=== PATIENT | male | born 1970 | race Caucasian/White ===

== ENCOUNTER 2023-04-04 11:19 | Outpatient (AMB) | payer BC, SELFPAY ==
--- NOTE | 2023-04-04 11:23 | A.OFFPC_ITS ---
Vital Signs 04/04/23 11:31 Height 5 ft 8 in Weight 310 lb BMI 47.1 BP 138/78 Blood Pressure Location Lt brachial Position Sitting Pulse 83 Pulse Source Pulse Oximeter Pulse Oximetry (%) 98 Oxygen Delivery Method Room Air Intake Visit Reasons: NURSES' ASSOCIATION COUNSELOR/Depression Intake Note: Pt is here today for a New patient visit PE. Allergies No Known Allergies Allergy (Verified 04/04/23 11:33) Medication List - Last Reconciled 04/04/[address] MD duloxetine (Cymbalta) 30 mg PO BID Tobacco use date assessed: 04/04/23 Dental Screening Dental Screen Date: 04/04/23 Did you have a dental visit in the last 12 months?: No Did you have a dental problem in the last 6 months where you did not have access to dental care?: No Was dental information given to patient?: Patient declined HPI NURSES' ASSOCIATION COUNSELOR/Depression HPI Details Pt presents for NURSES' ASSOCIATION COUNSELOR visit. PMH includes anxiety for 10 years controlled on Cymbalta. Pt declined PE, labs and colonoscopy. PFSH Surgical History Hx of cholecystectomy Hx of cervical spine surgery Family History Father No problems noted. Mother Mental health disorder Dementia Social History Household Members Other:: lives with partner, 2 children (daughter and son), works as otr truck driver Housing: Apartment Patient Tobacco Use Status: Former Tobacco user (10 years ago) Tobacco use type: Cigarette e-Cigarette/Vaping Use: Currently Using Current occupational status: employed Cognitive needs: No Hearing needs: No Vision needs: Yes Questionnaire PHQ-9 Over the last 2 weeks, how often have you been bothered by any of the following problems? 59287 - PHQ-9 Billing: Patient declined-do not bill Source: Developed by Drs. Stu Monroy, Trudy Cutler, Lacho Aguilar and colleagues, with an educational isidoro from [employer]. Thrive Questionnaire Date Thrive assessed: 04/04/23 I am a: Patient What is your living situation today?: I have a steady place to live Within the past 12 months, did the food you bought not last and you didn't have the money to get more?: Never true Within the past 12 months, did you worry whether your food would run out before you got money to buy more?: Never true Do you have trouble paying for medicines?: No Do you have trouble getting transportation to medical appointments?: No Do you have trouble paying your heating and electricity bill?: No Do you have trouble taking care of your child, family member or friend?: No Do you have trouble with day-to-day activities such as bathing, preparing meals, shopping, managing finances, etc.?: No Are you currently unemployed and looking for a job?: No Are you interested in more education?: No Please select the resources that you would like help with: None Currently or been in a relationship where the following occur: no concerns reported THRIVE Score: 0 AUDIT C Alcohol Use Questionnaire (AUDIT-C) 1. How often do you have a drink containing alcohol?: 2-3 times a week 2. How many drinks containing alcohol do you have on a typical day when you are drinking?: 1 or 2 3. How often do you have six or more drinks on one occasion?: Never Total Score: 3 LISANDRO-7 AMB Questionnaire LISANDRO-7 Date LISANDRO - 7 assessed: 04/04/23 Feeling nervous, anxious, or on edge: 0 = Not at all Not being able to stop or control worryin = Not at all Worrying too much about different things: 0 = Not at all Trouble relaxin = Not at all Being so restless that it is hard to sit still: 0 = Not at all Becoming easily annoyed or irritable: 0 = Not at all Feeling afraid as if something awful might happen: 0 = Not at all Total LISANDRO-7 score (0-4 normal; 5-9 mild; 10-14 moderate; 15-21 severe): 0 Source: Developed by Drs. Stu Monroy, Trudy Cutler, Lacho Aguilar and colleagues, with an educational isidoro from [employer]. Review of Systems Const All systems reviewed & are unremarkable except as noted in HPI and below Reports no additional complaints Eyes Reports no additional complaints ENT Reports no additional complaints Card Reports no additional complaints Resp Reports no additional complaints GI Reports no additional complaints Reports no additional complaints Musc Reports no additional complaints Physical exam (Primary Care) Vital Signs: Last Vital Signs Pulse 83 04/04/23 11:31 BP 138/78 04/04/23 11:31 Pulse Ox 98 04/04/23 11:31 Oxygen Delivery Method Room Air 04/04/23 11:31 BMI result Body Mass Index 47.1 Tobacco/Smoking Status: Tobacco use Status Tobacco use date assessed 04/04/23 04/04/23 11:41 Patient Tobacco Use Status Former Tobacco user (10 04/04/23 12:12 years ago) Tobacco use type Cigarette 04/04/23 12:12 e-Cigarette/Vaping Use Currently Using 04/04/23 12:12 Thrive Assessment: Date of Thrive Assessment Date Thrive assessed 04/04/23 04/04/23 11:41 Currently or been in a relationship where the following occur: no concerns reported Const General: no acute distress HENMT Head: Yes normal to inspection Ears: hearing grossly normal bilaterally General nose exam: Normal external nose present Face and sinus: Yes normal facial exam Mouth: Normal oral and palatal mucosa present Throat: Yes posterior oropharynx normal Eyes General: appearance normal, both eyes and all related structures Neck Neck: Yes no lymphadenopathy and Yes supple Resp Effort & Inspection: normal respiratory effort Auscultation: clear to auscultation bilaterally Cardio Rhythm: regular rhythm Heart sounds: S1 normal heart sound present and S2 normal heart sound present GI Inspection: Yes normal to inspection Palpation (GI): Soft to palpation Percussion: Yes normal to percussion Auscultation: normal bowel sounds Assessment and Plan Assessment & Plan (1) Anxiety: Code(s): F41.9 - Anxiety disorder, unspecified Plan: cont Cymbalta, psychotherapy recommended Orders: Referrals Counseling Referral F41.9 - Anxiety disorder, unspecified Medications: Refilled duloxetine (Cymbalta) 30 mg PO BID 60 caps 5RF F41.9 - Anxiety disorder, unspecified duloxetine (Cymbalta) 30 mg PO BID 60 caps 5RF F41.9 - Anxiety disorder, unspecified Coding Level of Care Code New Pt Level 3 (04054) Diagnoses Anxiety F41.9
[2023-04-04 11:31] VITALS: BP 138/78; PULSE 83; O2SAT 98; BMI 47.1
== END 2023-04-04 19:47 | disposition home or self-care (01) ==
PROVIDERS: PCP Internal Medicine; Visit Provider Internal Medicine
DX: F41.9 Anxiety disorder, unspecified (principal)
CPT/HCPCS: 99203

== ENCOUNTER 2023-05-15 11:39 | Outpatient (AMB) | payer BC, SELFPAY ==
[2023-05-15 11:51] VITALS: BP 138/84; PULSE 90; O2SAT 97; BMI 48.2
--- NOTE | 2023-05-15 11:51 | A.OFFPC_ITS ---
Vital Signs 05/15/23 11:51 Height 5 ft 8 in Weight 317 lb BMI 48.2 BP 138/84 Blood Pressure Location Rt brachial Position Sitting Pulse 90 Pulse Source Pulse Oximeter Pulse Oximetry (%) 97 Oxygen Delivery Method Room Air Intake Visit Reasons: flu like symptoms, cough, Intake Note: Pt is here today for a sick visit. Pt c/o cough, congestion loosing voice since Monday. Allergies No Known Allergies Allergy (Verified 05/15/23 11:55) Medication List - Last Reconciled 05/15/[address] MD benzonatate 200 mg PO BID PRN duloxetine (Cymbalta) 30 mg PO BID Tobacco use date assessed: 05/15/23 Dental Screening Dental Screen Date: 04/04/23 HPI flu like symptoms, cough, HPI Details Pt presents c/o nasal congestion, rhinorrhea, chills, dry cough for 2 days. Patient denies shortness or breath pleurisy fever sore throat PFSH Surgical History Hx of cholecystectomy Hx of cervical spine surgery Family History Father No problems noted. Mother Mental health disorder Dementia Social History Household Members Other:: lives with partner, 2 children (daughter and son), works as tank truck operator Housing: Apartment Patient Tobacco Use Status: Former Tobacco user (10 years ago) Tobacco use type: Cigarette e-Cigarette/Vaping Use: Currently Using service: No Current occupational status: employed Cognitive needs: No Hearing needs: No Vision needs: Yes Questionnaire Thrive Questionnaire Date Thrive assessed: 04/04/23 LISANDRO-7 AMB Questionnaire LISANDRO-7 Date LISANDRO - 7 assessed: 04/04/23 Source: Developed by Drs. Stu Monroy, Trudy Cutler, Lacho Aguilar and colleagues, with an educational isidoro from [employer]. Review of Systems Const All systems reviewed & are unremarkable except as noted in HPI and below Eyes Reports no additional complaints ENT Reports no additional complaints Card Reports no additional complaints Resp Reports no additional complaints GI Reports no additional complaints Reports no additional complaints Physical exam (Primary Care) Vital Signs: Last Vital Signs Pulse 90 05/15/23 11:51 Pulse Ox 97 05/15/23 11:51 Oxygen Delivery Method Room Air 05/15/23 11:51 BMI result Body Mass Index 48.2 Tobacco/Smoking Status: Tobacco use Status Tobacco use date assessed 05/15/23 05/15/23 11:56 Patient Tobacco Use Status Former Tobacco user (10 05/15/23 11:56 years ago) Tobacco use type Cigarette 05/15/23 11:56 e-Cigarette/Vaping Use Currently Using 05/15/23 11:56 Thrive Assessment: Date of Thrive Assessment Date Thrive assessed 04/04/23 05/15/23 11:56 Const General: no acute distress HENMT Head: Yes normal to inspection General nose exam: Abnormal mucous membranes and turbinates present erythematous Mouth: Normal oral and palatal mucosa present Throat: Yes postnasal drainage Eyes General: appearance normal, both eyes and all related structures Neck Neck: Yes no lymphadenopathy and Yes supple Resp Effort & Inspection: normal respiratory effort Auscultation: clear to auscultation bilaterally Cardio Rhythm: regular rhythm Heart sounds: S1 normal heart sound present and S2 normal heart sound present Assessment and Plan Assessment & Plan (1) URI (upper respiratory infection): Code(s): J06.9 - Acute upper respiratory infection, unspecified Plan: CHECK RESPIRATORY PANEL SWAB, SUPPORTIVE CARE DISCUSSED WITH THE PATIENT, ABRAM SWAN ARE PRESCRIBED Medications: New benzonatate 200 mg PO BID PRN 20 caps 0RF cough Coding Level of Care Code Est Pt Level 3 (94702) Diagnoses URI (upper respiratory infection) J06.9
== END 2023-05-15 12:39 | disposition home or self-care (01) ==
PROVIDERS: PCP Internal Medicine; Visit Provider Internal Medicine
DX: J06.9 Acute upper respiratory infection, unspecified (principal)
CPT/HCPCS: 99213

== ENCOUNTER 2023-05-15 12:47 | Outpatient (REF) | payer BC, SELFPAY ==
[2023-05-15 17:54] LABS: Influenza A PCR NEGATIVE (Negative); Influenza B PCR NEGATIVE (Negative); Resp Syncy Virus RNA Qual PCR NEGATIVE (Negative); SARS COV2 PCR INHOUSE NEGATIVE (Negative)
== END 2023-05-15 12:48 | disposition home or self-care (01) ==
LOC: HO.LAB 12:47
PROVIDERS: Visit Provider Internal Medicine
DX: Z11.52 Encounter for screening for COVID-19 (principal); J06.9 Acute upper respiratory infection, unspecified
CPT/HCPCS: 0241U

== ENCOUNTER 2023-08-24 10:24 | Emergency (ER) | payer OTHER, BC, SELFPAY ==
--- NOTE | ~2023-08-24 | XR_ITS ---
EXAMINATION: XR HAND, RIGHT CLINICAL INFORMATION: History of injury, fall from tractor trailer truck and then onto ground COMPARISON: None available. TECHNIQUE: PA, lateral, and oblique views of the right hand. XR/XR hand RT min 3V FINDINGS AND IMPRESSION: No evidence of acute fracture or malalignment in the wrist or hand. Old healed fracture of the fifth metacarpal. Incidentally noted are small lucencies at the tips of the distal phalanges of the third and fourth digits, and these are suspected to represent old healed fractures. There are no radiopaque foreign bodies.
--- NOTE | ~2023-08-24 | CT_ITS ---
EXAMINATION: CT HEAD W/O IV CONTRAST CT CERVICAL SPINE W/O IV CONTRAST CLINICAL INFORMATION: History of fall, head strike and neck pain. COMPARISON: None TECHNIQUE: Head - Contiguous axial imaging of the head was performed from the skull base to the vertex without the administration of intravenous contrast, and axial images are reconstructed at 2 mm and 5 mm slice thickness. Cervical spine - A volumetric, helical CT acquisition of the cervical spine was obtained without contrast; in addition to the standard set of axial images, multiplanar reformatted images were provided in the coronal and sagittal imaging planes. This CT examination was performed using dose optimization techniques as appropriate, variously including the following: *Automated exposure control *Adjustment of mA and/or kV according to patient size (this includes techniques or standardized protocols for targeted exams where dose is matched to indication/reason for exam; i.e. extremities or head) *Use of iterative reconstruction technique DLP: 1469 mGy-cm (total) FINDINGS: HEAD: No acute intracranial findings. Maynard to white matter differentiation is preserved. No evidence of intracranial hemorrhage, major vascular territory infarction, focal mass effect or midline shift. The ventricles have normal size and configuration. No hydrocephalus or extra-axial fluid collections. There is a small midline soft tissue hematoma of the parietoccipital region of the scalp (image 58, series 9). The calvarium is intact and the visualized paranasal sinuses, mastoid air cells and middle ear cavities are clear. The temporomandibular joints are normal. The orbits and globes are unremarkable. CERVICAL SPINE: The craniocervical junction is intact. The occipital condyles, dens and atlantodental articulation are intact. There is an old well-corticated ossicle at the tip of the dens and osteophyte formation is noted at the anterior atlantodental articulation. There is lack of lordotic curvature of the cervical spine. The vertebral body heights and alignment are maintained. No fractures in the anterior or posterior elements. No prevertebral soft tissue edema or soft tissue hematoma. Mild degenerative narrowing of disc space and anterior vertebral osteophyte formation at C3-C4, C4-C5, C6-C7 and C7-T1. Prior discectomy and anterior fusion at C5-C6. The bone graft is incorporated into the vertebral endplates and there is no loosening of the anterior fusion plate and screws. At C5-C6, there is left-sided uncovertebral joint hypertrophy causes mild neural foraminal stenosis. At C6-C7, there is bilateral uncovertebral joint hypertrophy with moderate right and mild left neural foraminal stenosis. At C7-T1, the hypertrophied uncovertebral joints cause mild bilateral foraminal stenosis. There is no significant narrowing of the central spinal canal. CT/CT cervical spine wo IV con IMPRESSION: * No intracranial hemorrhage or other acute intracranial pathology. * There is a small posterior midline parietoccipital region scalp hematoma without calvarial fracture. * No fracture or malalignment in the degenerated cervical spine. * Surgical changes from remote discectomy and anterior fusion at C5-C6.
--- NOTE | ~2023-08-24 | XR_ITS ---
EXAMINATION: XR TIBIA AND FIBULA, RIGHT CLINICAL INFORMATION: Trauma. Fall from tractor trailer truck and then onto ground COMPARISON: None available. TECHNIQUE: AP and lateral views of the right tibia and fibula were obtained. FINDINGS: Bones have normal alignment at the knee and ankle. The joint spaces are maintained. No knee joint effusion. Tibia and fibula are intact. There is a small calcaneal enthesophyte at the Achilles tendon insertion. There is soft tissue edema of the lower extremity without radiopaque foreign body. XR/XR tibia fibula RT 2V IMPRESSION: * No acute osseous injury in the right lower extremity. * There is posttraumatic soft tissue edema of the leg.
--- NOTE | ~2023-08-24 | XR_ITS ---
EXAMINATION: XR ELBOW, LEFT CLINICAL INFORMATION: Injury, swelling, fall from tractor trailer truck and then onto ground. COMPARISON: None available. TECHNIQUE: AP, lateral, and oblique views of the left elbow. FINDINGS: Bones have normal alignment at the elbow. The joint spaces are maintained. No fractures are seen. Incidentally noted is an enthesophyte of the medial humeral epicondyle. No elbow joint effusion. No radiopaque foreign body. There appears to be mild soft tissue edema posterior to the proximal olecranon. XR/XR elbow LT min 3V IMPRESSION: No evidence of acute osseous injury at the left elbow.
[2023-08-24 10:26] VITALS: BP 147/78; PULSE 101; RESP 18; TEMP 36.6; O2SAT 98; BMI 43.8
--- NOTE | 2023-08-24 13:34 | ED.FALL ---
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 He fell out of the back of the truck and hit his head on the bumper of another vehicle behind it. Unknown if he lost consciousness. He is not on a blood thinner. He presents with mild headache where he hit his head on the back of his head, left elbow pain, right thumb pain and swelling along with right lower leg pain and bruising. He states he cannot close his right hand and make a fist due to pain and swelling in the thumb. no numbness or tingling. he reports significant pain of the right lower leg with walking and palpation. left elbow is swollen but he is able to fully flex it and extend it. MD complaint: fall Onset (ago): hour(s) Fall from: from height (distance) (3) Fall witnessed: no Place fall occurred: work Loss of consciousness: unsure Prolonged down time: no Symptoms prior to fall: none Context: tripped/slipped Location of injury: head Location of injury - extremities: left: elbow and right: hand and lower leg Severity: moderate Quality: aching Associated symptoms (after fall): headache Related Data Previous Rx's ?Medication ?Instructions ?Recorded duloxetine 30 mg capsule,delayed 30 mg PO BID #60 caps 04/04/23 release (Cymbalta) benzonatate 200 mg capsule 200 mg PO BID PRN cough #20 caps 05/15/23 ibuprofen 600 mg tablet 600 mg PO Q8H PRN pain #14 tabs 08/24/23 oxycodone 5 mg tablet 5 mg PO Q8H PRN severe pain (scale 08/24/23 score 7-10) #6 tabs Allergies Allergy/AdvReac Type Severity Reaction Status Date / Time No Known Allergies Allergy Verified 08/24/23 10:34 Review of Systems Review of Systems: Yes all other systems are reviewed and are negative PMFSH Past Medical History Surgical History (Reviewed 05/15/23 @ 11:56 by KELI Keith Hx of cholecystectomy Hx of cervical spine surgery Family History Family History Father No problems noted. Mother Mental health disorder Dementia Social History Social History Household Members Other:: lives with partner, 2 children (daughter and son), works as experienced truck driver Housing: Apartment Patient Tobacco Use Status: Former Tobacco user (10 years ago) Tobacco use type: Cigarette e-Cigarette/Vaping Use: Currently Using Advance Directives: No Advance Directives Information Provided: Yes Do you have a plan to hurt others: No Plan service: No Current occupational status: employed Cognitive needs: No Hearing needs: No Vision needs: Yes Physical Exam Vital Signs: Vital Signs: Last Vital Signs Temp 97.9 F 08/24/23 10:26 Pulse 101 H 08/24/23 10:26 Resp 18 08/24/23 10:26 BP 147/78 H 08/24/23 10:26 Pulse Ox 98 08/24/23 10:26 BMI result Body Mass Index 43.8 Appearance: Alert. Oriented X3. No acute distress. Head: normocephalic, superficial abraions <1cm over left eye, moderate swelling in the left temporo-parietal region with out crepitus, depression or deformity Eyes: Pupils equal, round and reactive to light. no periorbital swelling or ecchymosis. ENT: Pharynx normal. No tonsillar swelling or exudate. No dental trauma. no malocclusions, normal TMs bilaterally. Neck: Normal inspection. Neck supple. no midline tenderness or deformities. CVS: Normal heart rate and rhythm. Pulses normal. Respiratory: No respiratory distress. Breath sounds normal. Abdomen: Soft and nontender. +BS x4 Skin: Skin warm and dry. Normal skin color. Normal skin turgor. No rashes. Extremities: right lower leg with moderate size (10cm) area of ecchymosis, swelling and tenderness. compartments are soft and compression. foot is warm and well perfused with 2+ DP pulses. left elbow with moderate swelling and tenderness, FROM. no crepitus. no point tenderness of the elbow. right hand with swelling and tenderness of the thumb MCP and IP joint w/ limited ROM due to pain and swelling. unable to adduct thumb to fingers. cap refill <3 sec Neuro/psych: Oriented X 3. No motor deficit. No sensory deficit. CN II-XII intact. Normal speech and cognition. Procedures Orthopedic Splinting/Casting Injury #1: Side: right Upper Extremity Injury Location: hand Upper Extremity Immobilizer: thumb spica Medical Decision Making Medical Decision Making MDM Narrative: 53-year-old male with history of depression anxiety presents to the ER for evaluation of head injury, left elbow injury, right hand injury and right lower leg injury after he fell out of a truck today while at work. Unsure if he lost consciousness. He arrives to the ER, awake, alert, oriented x3, nonfocal on examination. He does have moderate swelling of the left elbow and right lower leg. Right lower extremity with significant ecchymosis/hematoma. He is not on anticoagulation. Compartments are soft and compressible. He has limited range of motion and tenderness of the right thumb due to pain and swelling. X-rays of the right hand, left elbow, right lower leg were performed today which not show any acute fractures. CT scan of his head did not show any acute injuries as well. He was observed in the ER, and re-evaluated. The ecchymotic area on his right lower leg did not appear to be getting worse, lower suspicion for actively bleeding hematoma. No evidence of compartment syndrome at this time. Concern for ligamentous injury of the right thumb. he is right hand dominant. will place in thumb spica splint and refer to ortho/hand. we discussed radiology reads and management of injuries, need for follow up ect. stable for d/c home. Differential Diagnosis Differential Diagnoses: The differential diagnosis associated with the presentation includes Concussion, closed head injury, ICH/SAH, right thumb fracture, right thumb sprain, left elbow contusion, left elbow fracture, right lower extremity hematoma/contusion, actively bleeding hematoma/extravasation, rhabdomyolysis or compartment syndrome Admission/Observation Consideration of admission/observation: Escalation of care including admission/observation considered Multiple injuries, considered observation/admission however pain well controlled and imaging was unremarkable Independent Interpretation I performed an independent interpretation of an: Plain X-Ray and CT Scan Interpretation: CT head without actute bleed or edema, agree w/ radiology read XR of the right hand, right tib/fib, left elbow reviewed- no acute fx seen Radiology Impression Discussion of test interpretation with radiology: I have reviewed the radiologist's reading. Radiologist Impression: CT/CT head/brain wo IV con IMPRESSION: * No intracranial hemorrhage or other acute intracranial pathology. * There is a small posterior midline parietoccipital region scalp hematoma without calvarial fracture. * No fracture or malalignment in the degenerated cervical spine. * Surgical changes from remote discectomy and anterior fusion at C5-C6. XR/XR tibia fibula RT 2V IMPRESSION: * No acute osseous injury in the right lower extremity. * There is posttraumatic soft tissue edema of the leg. XR/XR hand RT min 3V FINDINGS AND IMPRESSION: No evidence of acute fracture or malalignment in the wrist or hand. Old healed fracture of the fifth metacarpal. Incidentally noted are small lucencies at the tips of the distal phalanges of the third and fourth digits, and these are suspected to represent old healed fractures. There are no radiopaque foreign bodies. XR/XR elbow LT min 3V IMPRESSION: No evidence of acute osseous injury at the left elbow. Independent Historian Clinical information obtained from an independent historian. History obtained from or confirmed by: Spouse Tests considered The following testing was considered but not selected: CT RLE considered however lower clinical suspicion for compartment syndrome or actively bleeding hematoma upon re-evaluation of injury Prescription Management I considered prescription management with: Pain Medication Critical Care Time Critical Care Time Critical Care Time: No Discharge Plan Discharge Clinical Impression: Hematoma of right lower leg, Contusion of left elbow, Sprain of hand, thumb, right Patient Disposition: Home, Self-Care Instructions: Finger Sprain (ED), Hematoma (ED) Additional Instructions: Your x-rays dated not show any broken bones. Your CT scan did not show any acute abnormalities. Recommend icing and elevating the bruises on her right lower leg and left elbow. Wear the Kt wrap for compression and support and to help with the swelling. Take the narcotic medication as needed for severe pain only. Do not drive after taking this medication. Recommend 1000 mg of Tylenol every 6 hours around the clock. Where the provided thumb spica splint on your right hand unless you are bathing Follow up with Orthopedics for further evaluation and treatment If you develop new or worsening symptoms call 911 or come back to the ER for further evaluation. Prescriptions: New oxycodone 5 mg tablet 5 mg PO Q8H PRN (Reason: severe pain (scale score 7-10)) Qty: 6 0RF Rx Instructions: Partial Fill upon patient request. ibuprofen 600 mg tablet 600 mg PO Q8H PRN (Reason: pain) Qty: 14 0RF No Action benzonatate 200 mg capsule 200 mg PO BID PRN (Reason: cough) Qty: 20 0RF duloxetine [Cymbalta] 30 mg capsule,delayed release(DR/EC) 30 mg PO BID Qty: 60 5RF Referrals: [facility] [place] [facility] [Provider Group] (right thumb injury, XR negative) Jonna Lane MD [Primary Care Provider] - Stand Alone Forms: Work/School Release Print Language: Bulgarian
[2023-08-24 14:48] VITALS: BP 147/78; PULSE 101; RESP 18; TEMP 36.6; O2SAT 98
== END 2023-08-24 14:49 | disposition home or self-care (01) ==
PROVIDERS: Emergency Provider Emergency Medicine Emergency Medical Services; PCP Internal Medicine
DX: S09.90XA Unspecified injury of head, initial encounter (principal); S50.02XA Contusion of left elbow, initial encounter; S63.601A Unspecified sprain of right thumb, initial encounter; S80.11XA Contusion of right lower leg, initial encounter; W17.89XA Other fall from one level to another, initial encounter; Y93.9 Activity, unspecified; Y92.89 Other specified places as the place of occurrence of the external cause; Y99.0 Civilian activity done for income or pay
CPT/HCPCS: 70450; 72125; 73080; 73130; 73590; 99283; 99284

== ENCOUNTER 2023-12-27 14:14 | Outpatient (AMB) | payer BC, SELFPAY ==
--- NOTE | 2023-12-27 14:16 | MHC.PC.OV ---
Vital Signs 12/27/23 14:17 Height 5 ft 7 in Weight 264 lb BMI 41.3 BP 118/70 Blood Pressure Location Rt brachial Position Sitting Pulse 92 Pulse Source Pulse Oximeter Pulse Oximetry (%) 98 Oxygen Delivery Method Room Air Intake Visit Reasons: Followup depression Intake Note: Pt is here today for a follow up visit on depression. Allergies No Known Allergies Allergy (Verified 12/27/23 14:18) Medication List - Last Reconciled 12/27/[address] MD duloxetine (Cymbalta) 30 mg PO BID ibuprofen 600 mg PO Q8H PRN Tobacco use date assessed: 12/27/23 Dental Screening Dental Screen Date: 04/04/23 HPI Followup depression HPI Details Pt presents for the follow-up of chronic anxiety depression, controlled on duloxetine. He has been decreasing caloric intake and being physically active at work and lost 50 lb since last visit. PFSH Surgical History Hx of cholecystectomy Hx of cervical spine surgery Family History Father No problems noted. Mother Mental health disorder Dementia Social History Household Members Other:: lives with partner, 2 children (daughter and son), works as lease purchase truck driver Housing: Apartment Patient Tobacco Use Status: Former Tobacco user (10 years ago) Tobacco use type: Cigarette e-Cigarette/Vaping Use: Currently Using service: No Current occupational status: employed Cognitive needs: No Hearing needs: No Vision needs: Yes Questionnaire PHQ-9 Over the last 2 weeks, how often have you been bothered by any of the following problems? 1. Little interest or pleasure in doing things: not at all 2. Feeling down, depressed, or hopeless: not at all 3. Trouble falling or staying asleep, or sleeping too much: not at all 4. Feeling tired or having little energy: not at all 5. Poor appetite or overeating: not at all 6. Feeling bad about yourself - or that you are a failure or have let yourself or your family down: not at all 7. Trouble concentrating on things, such as reading the newspaper or watching television: not at all 8. Moving or speaking so slowly that other people could have noticed. Or the opposite - being so fidgety or restless that you have been moving around a lot more than usual: not at all 9. Thoughts that you would be better off or of hurting yourself in some way: not at all Total score: 0 Depression Screening Interpretation: Negative Depression Screening Done: Yes 13954 - PHQ-9 Billing: Yes Source: Developed by Drs. Stu Monroy, Trudy Cutler, Lacho Aguilar and colleagues, with an educational isidoro from [employer]. Thrive Questionnaire Date Thrive assessed: 12/27/23 I am a: Patient What is your living situation today?: I have a steady place to live Within the past 12 months, did the food you bought not last and you didn't have the money to get more?: Never true Within the past 12 months, did you worry whether your food would run out before you got money to buy more?: Never true Do you have trouble paying for medicines?: No Do you have trouble getting transportation to medical appointments?: No Do you have trouble paying your heating and electricity bill?: No Do you have trouble taking care of your child, family member or friend?: No Do you have trouble with day-to-day activities such as bathing, preparing meals, shopping, managing finances, etc.?: No Are you currently unemployed and looking for a job?: No Are you interested in more education?: No Please select the resources that you would like help with: None Currently or been in a relationship where the following occur: No concerns reported THRIVE Score: 0 AUDIT C Alcohol Use Questionnaire (AUDIT-C) 1. How often do you have a drink containing alcohol?: Never 3. How often do you have six or more drinks on one occasion?: Never Total Score: 0 LISANDRO-7 AMB Questionnaire LISANDRO-7 Date LISANDRO - 7 assessed: 12/27/23 Feeling nervous, anxious, or on edge: 0 = Not at all Not being able to stop or control worryin = Not at all Worrying too much about different things: 0 = Not at all Trouble relaxin = Not at all Being so restless that it is hard to sit still: 0 = Not at all Becoming easily annoyed or irritable: 0 = Not at all Feeling afraid as if something awful might happen: 0 = Not at all Total LISANDRO-7 score (0-4 normal; 5-9 mild; 10-14 moderate; 15-21 severe): 0 Source: Developed by Drs. Stu Monroy, Trudy Cutler, Lacho Aguilar and colleagues, with an educational isidoro from [employer]. LISANDRO-7 Assessment Billing LISANDRO-7 Assessment Tool: LISANDRO-7 Assessment 09340 Review of Systems Const All systems reviewed & are unremarkable except as noted in HPI and below Eyes Reports no additional complaints Card Reports no additional complaints Resp Reports no additional complaints GI Reports no additional complaints Reports no additional complaints Physical exam (Primary Care) Vital Signs: Last Vital Signs Pulse 92 12/27/23 14:17 BP 118/70 12/27/23 14:17 Pulse Ox 98 12/27/23 14:17 Oxygen Delivery Method Room Air 12/27/23 14:17 BMI result Body Mass Index 41.3 Tobacco/Smoking Status: Tobacco use Status Tobacco use date assessed 12/27/23 12/27/23 14:22 Patient Tobacco Use Status Former Tobacco user (10 12/27/23 14:22 years ago) Tobacco use type Cigarette 12/27/23 14:20 e-Cigarette/Vaping Use Currently Using 12/27/23 14:20 PHQ-9: PHQ-9 Score PHQ-9: Total score 0 12/27/23 14:22 Depression Screening Interpretation: Negative Thrive Assessment: Date of Thrive Assessment Date Thrive assessed 12/27/23 12/27/23 14:22 Currently or been in a relationship where the following occur: No concerns reported Const General: no acute distress HENMT Head: Yes normal to inspection Eyes General: appearance normal, both eyes and all related structures Neck Neck: Yes supple Resp Effort & Inspection: normal respiratory effort Auscultation: clear to auscultation bilaterally Cardio Rhythm: regular rhythm Heart sounds: S1 normal heart sound present and S2 normal heart sound present GI Inspection: Yes normal to inspection Palpation (GI): Soft to palpation Coding Level of Care Code Est Pt Level 3 (74148) Diagnoses Anxiety F41.9 Obesity E66.9 Additional Codes LISANDRO-7 Assessment Billing - LISANDRO-7 Assessment Tool: LISANDRO-7 Assessment 80601 ([id number]) PHQ-9 - 79761 - PHQ-9 Billing: Yes ([id number]) Assessment & Plan Assessment & Plan (1) Anxiety: Code(s): F41.9 - Anxiety disorder, unspecified Category: Medical Plan: Controlled on duloxetine, patient declined physical ,blood work, colonoscopy (2) Obesity: Comment: BMI 41.3 Code(s): E66.9 - Obesity, unspecified Category: Medical Plan: CONTINUE DECREASING CALORIC INTAKE INCREASING PHYSICAL ACTIVITY AND WEIGHT LOSS Medications: Refilled duloxetine (Cymbalta) 30 mg PO BID 180 caps 3RF F41.9 - Anxiety disorder, unspecified
[2023-12-27 14:17] VITALS: BP 118/70; PULSE 92; O2SAT 98; BMI 41.3
== END 2023-12-27 14:40 | disposition home or self-care (01) ==
PROVIDERS: PCP Internal Medicine; Visit Provider Internal Medicine
DX: F41.9 Anxiety disorder, unspecified (principal); E66.9 Obesity, unspecified; Z68.41 Body mass index [BMI] 40.0-44.9, adult

== ENCOUNTER → 2023-12-27 14:14 | Outpatient (BNVA) | payer OTHER, BC, SELFPAY | PROVIDERS: PCP Internal Medicine; Visit Provider Internal Medicine | DX: F41.9 Anxiety disorder, unspecified (principal); E66.9 Obesity, unspecified; Z68.41 Body mass index [BMI] 40.0-44.9, adult; Z79.899 Other long term (current) drug therapy | CPT/HCPCS: 96127 ==

== ENCOUNTER 2024-04-05 10:42 | Outpatient (AMB) | payer BC, SELFPAY ==
[2024-04-05 10:49] VITALS: BP 124/76; PULSE 81; RESP 18; TEMP 36.7; O2SAT 97; BMI 41.5
--- NOTE | 2024-04-05 10:49 | MHC.PC.OV ---
Vital Signs 04/05/24 10:49 Height 5 ft 7 in Weight 265 lb BMI 41.5 BP 124/76 Blood Pressure Location Lt brachial Position Sitting Respiration 18 Pulse 81 Pulse Source Pulse Oximeter Temp 98.0 F Temp Source Oral Pulse Oximetry (%) 97 Oxygen Delivery Method Room Air Intake Visit Reasons: ED/medication management Intake Note: Pt is here today for a follow up visit on med refill. Allergies No Known Allergies Allergy (Verified 04/05/24 10:59) Medication List - Last Reconciled 04/05/[address] MD duloxetine (Cymbalta) 30 mg PO BID ibuprofen 600 mg PO Q8H PRN sildenafil (Viagra) 100 mg PO DAILY PRN Tobacco use date assessed: 04/05/24 Dental Screening Dental Screen Date: 04/04/23 HPI ED/medication management HPI Details Patient presents for the follow-up. Chronic depression anxiety is controlled on duloxetine. Patient complains of erectile dysfunction used to take Viagra with a good effect PFSH Surgical History Hx of cholecystectomy Hx of cervical spine surgery Family History Father No problems noted. Mother Mental health disorder Dementia Social History Household Members Other:: lives with partner, 2 children (daughter and son), works as commercial trailer truck driver Housing: Apartment Patient Tobacco Use Status: Former Tobacco user (10 years ago) Tobacco use type: Cigarette e-Cigarette/Vaping Use: Currently Using service: No Current occupational status: employed Cognitive needs: No Hearing needs: No Vision needs: Yes Questionnaire PHQ-9 Over the last 2 weeks, how often have you been bothered by any of the following problems? 1. Little interest or pleasure in doing things: not at all 2. Feeling down, depressed, or hopeless: not at all 3. Trouble falling or staying asleep, or sleeping too much: not at all 4. Feeling tired or having little energy: not at all 5. Poor appetite or overeating: not at all 6. Feeling bad about yourself - or that you are a failure or have let yourself or your family down: not at all 7. Trouble concentrating on things, such as reading the newspaper or watching television: not at all 8. Moving or speaking so slowly that other people could have noticed. Or the opposite - being so fidgety or restless that you have been moving around a lot more than usual: not at all 9. Thoughts that you would be better off or of hurting yourself in some way: not at all Total score: 0 Depression Screening Interpretation: Negative Depression Screening Done: Yes 54299 - PHQ-9 Billing: Yes Source: Developed by Drs. Stu Monroy, Trudy Cutler, Lacho Aguilar and colleagues, with an educational isidoro from [employer]. Thrive Questionnaire Date Thrive assessed: 04/05/24 I am a: Patient What is your living situation today?: I have a steady place to live Within the past 12 months, did the food you bought not last and you didn't have the money to get more?: Never true Within the past 12 months, did you worry whether your food would run out before you got money to buy more?: Never true Do you have trouble paying for medicines?: No Do you have trouble getting transportation to medical appointments?: No Do you have trouble paying your heating and electricity bill?: No Do you have trouble taking care of your child, family member or friend?: No Do you have trouble with day-to-day activities such as bathing, preparing meals, shopping, managing finances, etc.?: No Are you currently unemployed and looking for a job?: No Are you interested in more education?: No Please select the resources that you would like help with: None Currently or been in a relationship where the following occur: No concerns reported THRIVE Score: 0 AUDIT C Alcohol Use Questionnaire (AUDIT-C) 1. How often do you have a drink containing alcohol?: Monthly or less 2. How many drinks containing alcohol do you have on a typical day when you are drinking?: 1 or 2 3. How often do you have six or more drinks on one occasion?: Never Total Score: 1 LISANDRO-7 AMB Questionnaire LISANDRO-7 Date LISANDRO - 7 assessed: 04/05/24 Feeling nervous, anxious, or on edge: 0 = Not at all Not being able to stop or control worryin = Not at all Worrying too much about different things: 0 = Not at all Trouble relaxin = Not at all Being so restless that it is hard to sit still: 0 = Not at all Becoming easily annoyed or irritable: 0 = Not at all Feeling afraid as if something awful might happen: 0 = Not at all Total LISANDRO-7 score (0-4 normal; 5-9 mild; 10-14 moderate; 15-21 severe): 0 Source: Developed by Drs. Stu Monroy, Trudy Cutler, Lacho Aguilar and colleagues, with an educational isidoro from [employer]. LISANDRO-7 Assessment Billing LISANDRO-7 Assessment Tool: LISANDRO-7 Assessment 66167 Review of Systems Const All systems reviewed & are unremarkable except as noted in HPI and below Eyes Reports no additional complaints ENT Reports no additional complaints Card Reports no additional complaints Resp Reports no additional complaints GI Reports no additional complaints Physical exam (Primary Care) Vital Signs: Last Vital Signs Temp 98.0 F 04/05/24 10:49 Pulse 81 04/05/24 10:49 Resp 18 04/05/24 10:49 BP 124/76 04/05/24 10:49 Pulse Ox 97 04/05/24 10:49 Oxygen Delivery Method Room Air 04/05/24 10:49 BMI result Body Mass Index 41.5 Tobacco/Smoking Status: Tobacco use Status Tobacco use date assessed 04/05/24 04/05/24 10:51 Patient Tobacco Use Status Former Tobacco user (04/05/24 10:51 years ago) Tobacco use type Cigarette 04/05/24 10:51 e-Cigarette/Vaping Use Currently Using 04/05/24 10:51 PHQ-9: PHQ-9 Score PHQ-9: Total score 0 04/05/24 10:51 Depression Screening Interpretation: Negative Thrive Assessment: Date of Thrive Assessment Date Thrive assessed 04/05/24 04/05/24 10:51 Currently or been in a relationship where the following occur: No concerns reported Const General: no acute distress HENMT Head: Yes normal to inspection Face and sinus: Yes normal facial exam Resp Effort & Inspection: normal respiratory effort Auscultation: clear to auscultation bilaterally Cardio Rhythm: regular rhythm Heart sounds: S1 normal heart sound present and S2 normal heart sound present GI Inspection: Yes normal to inspection Palpation (GI): Soft to palpation Coding Level of Care Code Est Pt Level 3 (34835) Diagnoses Anxiety F41.9 Erectile disorder N52.9 Additional Codes LISANDRO-7 Assessment Billing - LISANDRO-7 Assessment Tool: LISANDRO-7 Assessment 93153 ([id number]) PHQ-9 - 60487 - PHQ-9 Billing: Yes ([id number]) Assessment & Plan Assessment & Plan (1) Anxiety: Code(s): F41.9 - Anxiety disorder, unspecified Category: Medical Plan: Continue duloxetine (2) Erectile disorder: Code(s): N52.9 - Male erectile dysfunction, unspecified Category: Medical Plan: Viagra is refilled Medications: New sildenafil (Viagra) administer 30 minutes to 4 hours before activity 100 mg PO DAILY PRN 10 tabs 3RF sexual activity Refilled duloxetine (Cymbalta) 30 mg PO BID 180 caps 3RF F41.9 - Anxiety disorder, unspecified
== END 2024-04-05 11:42 | disposition home or self-care (01) ==
PROVIDERS: PCP Internal Medicine; Visit Provider Internal Medicine
DX: F41.9 Anxiety disorder, unspecified (principal); N52.9 Male erectile dysfunction, unspecified

== ENCOUNTER → 2024-04-05 10:42 | Outpatient (BNVA) | payer BC, SELFPAY | PROVIDERS: PCP Internal Medicine; Visit Provider Internal Medicine | DX: F41.9 Anxiety disorder, unspecified (principal); N52.9 Male erectile dysfunction, unspecified; Z79.899 Other long term (current) drug therapy | CPT/HCPCS: 96127 ==